=== PATIENT | female | born 1955 | race Caucasian/White ===

== ENCOUNTER 2016-06-27 09:35 | Day surgery (SDC) | payer BC ==
[~2016-06-27] VITALS: Ht 177.8 cm; Wt 70.5 kg
[2016-06-27] MEDS ORDERED: LEXAPRO20 MG PO (10:47)
[2016-06-27] MEDS ORDERED: AMITIZA24 MCG PO (10:48)
[2016-06-27] MEDS ORDERED: PREMPRO 0.3 MG-1 TAB PO (10:48)
[2016-06-27] MEDS ORDERED: MACRODANTIN100 MG PO (10:49)
[2016-06-27] MEDS ORDERED: ENDOCET 10-3251 TAB PO (10:49)
[2016-06-27 10:52] VITALS: BP 86/49; Ht 177.8 cm; Wt 70.5 kg
[2016-06-27] MEDS ORDERED: [UNRECOGNIZED DRUG - OTHER] (11:03)
[2016-06-27 12:07] LABS: HEMATOCRIT 41.2 % (36.0-48.0); HEMOGLOBIN 13.1 g/dL (12-16); MCH 29.4 pg (26.0-34.0); MCHC 31.8 g/dL (31.0-37.0); MCV 92.6 fL (80.0-100.0); MEAN PLATELET VOLUME 10.8 fL (7.4-10.4); RBC 4.45 10x6/uL (4.00-5.40); RDW 14.4 % (11.5-14.5); WBC 4.8 10x3/uL (4.8-10.8)
--- NOTE | 2016-06-27 12:25 | NUR ---
1226 BALLOON DILATION 16 MOLDOVAN TO 18 MOLDOVAN X 1 MINUTE
--- NOTE | 2016-06-27 15:24 | NUR ---
1400--IV DC'D, PT UP TO DRESS. BRITTANY GANDHI 1410--DISCHARGE INSTRUCTIONS GIVEN, PT VERBALIZES UNDERSTANDING. PT OFF UNIT VIA WC. BRITTANY GANDHI
--- NOTE | 2016-06-28 12:18 | OP ---
PATIENT NAME: KAREN RUIZ MEDICAL RECORD: [id number] :57 LOCATION:[facility] ADMISSION DATE: SURGEON: MAXIMUS SUTTON DO DATE OF OPERATION: 06/27/2016 PROCEDURES: EGD with biopsies and balloon dilation less than 30 mm. INDICATIONS FOR PROCEDURE: Dysphagia, heartburn, left side abdominal pain. SCOPE: Olympus video gastroscope. MEDICATIONS: Propofol 100 mg IV per anesthesia. ESTIMATED BLOOD LOSS: Minimal. FINDINGS: Informed consent was given. The patient was made comfortable with the above medication. After reaching an adequate level of sedation by slow IV push, the patient was placed on her left side. The endoscope was then advanced under direct visualization through the mouth to the second portion of the duodenum. The upper, middle, and lower thirds of the esophagus appeared normal. 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 Cold forceps, biopsies were taken of this site to confirm the diagnosis. At the GE junction, there was also some mild esophageal stenosis. The endoscope did traverse this site without free dilating. The scope was advanced beyond the GE junction and retroflexed to view the cardia and fundus. There was a small hiatal hernia of the sliding type visualized on retroflexion. There were also a few benign appearing fundic gland type polyps in the fundus and body of the stomach. Scope was advanced down to the antrum and prepyloric region where there was some streaky erythema and granularity to the mucosa consistent with possible gastritis. Random biopsies were taken to submit for histology and to rule out H. pylori. The endoscope was advanced beyond the pylorus into the duodenum where the bulb and second portion of the duodenum appeared normal. The endoscope was then withdrawn back into the stomach and a CRE balloon was passed through the scope. The esophageal stenosis at the GE junction was dilated up to a total of 18 mm maximum diameter successfully. The scope was then withdrawn from the patient. The patient tolerated the procedure well and there were no complications. ESTIMATED BLOOD LOSS: Minimal. 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 2. Esophageal stenosis, dilated up to 18 mm. 3. Small sliding hiatal hernia. 4. Granularity and erythema of the antrum consistent with gastritis, biopsies taken. 5. Benign appearing fundic gland gastric polyps. PLAN AND RECOMMENDATIONS: 1. Discharge home when recovery parameters are met. 2. High fiber diet. 3. Continue current medications. 4. 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 OPERATIVE REPORT [id number] KAREN RUIZ 5. Follow up on symptoms. 6. The patient is scheduled to return in a month for a colonoscopy. We can read the symptoms at that time. TRANSINT:[id number] Voice Confirmation ID: [id number] DOCUMENT ID: [id number] MAXIMUS SUTTON DO at 1218 CC: [id number] DICTATION DATE: 06/27/16 1239 SIGN LETTERER: 06/27/160 [facility] 06/27/16 [facility] [address] [place] [address]
== END 2016-06-27 14:10 | disposition home or self-care (01) ==
LOC: D.OPS 09:35
PROVIDERS: Anesthesiology
DX: R13.10 Dysphagia, unspecified (principal); R10.9 Unspecified abdominal pain; K59.00 Constipation, unspecified; K44.9 Diaphragmatic hernia without obstruction or gangrene; K22.70 Barrett's esophagus without dysplasia; K31.7 Polyp of stomach and duodenum; Z01.812 Encounter for preprocedural laboratory examination; K21.9 Gastro-esophageal reflux disease without esophagitis

== ENCOUNTER 2016-07-30 05:50 | Day surgery (SDC) | payer BC ==
[~2016-07-30] VITALS: Ht 177.8 cm; Wt 70.5 kg
--- NOTE | ~2016-07-30 | OP ---
PATIENT NAME: KAREN RUIZ MEDICAL RECORD: [id number] :57 [facility]ATION:[facility] ADMISSION DATE: SURGEON: MAXIMUS SUTTON DO DATE OF OPERATION: 07/30/2016 PROCEDURE: Colonoscopy with biopsies. INDICATIONS FOR PROCEDURE: Constipation and left-sided abdominal pain. SCOPE: Olympus video pediatric colonoscope. MEDICATIONS: Propofol 175 mg IV per anesthesia. WITHDRAWAL TIME: Seven minutes. ESTIMATED BLOOD LOSS: Minimal. COMPLICATIONS: None. FINDINGS: Informed consent was given. The patient was made comfortable with the above medication. After reaching an adequate level of sedation by slow IV push, the patient was placed on her left side. A digital rectal examination was performed and revealed some small nonbleeding external hemorrhoids. The endoscope was then advanced under direct visualization through the rectum to the terminal ileum. The scope was slowly withdrawn and mucosa was carefully examined. The prep was fair. There were no polyps encountered on this examination. There were no diverticula as well. The entire colon did have an appearance consistent with melanosis coli, which is consistent with the patient's history of requiring laxatives for her chronic constipation. Random biopsies were taken to confirm this diagnosis. Retroflexion was performed in the rectum. There were small nonbleeding internal hemorrhoids present. The endoscope was then withdrawn from the patient. The patient tolerated the procedure well and there were no complications. IMPRESSIONS: 1. Melanosis coli. 2. Internal and external hemorrhoids, which were small and not bleeding. 3. Chronic constipation. PLAN AND RECOMMENDATIONS: 1. Discharge home when recovery parameters are met. 2. Continue high fiber diet. 3. Continue current medications. 4. Continue to work on a bowel regimen that helps with bowel movements, most significantly. So far this is consisted of Linzess 290 mcg daily and Senna. Other combinations could include fiber and MiraLax. I will discuss this with the patient and we will continue to work on a regimen that continues to improve her symptoms. TRANSINT:[id number] Voice Confirmation ID: [id number] DOCUMENT ID: [id number] OPERATIVE REPORT [id number] KAREN RUIZMAXIMUS HINKLE DO CC: [id number] DICTATION DATE: 07/30/16 08 HAND IRONER: 07/30/16 1634 [facility] 07/30/16 [place] [address]
[~2016-07-30 05:50] MED LIST: AMITIZA24 MCG PO; ENDOCET 10-3251 TAB PO; LEXAPRO20 MG PO; MACRODANTIN100 MG PO; PREMPRO 0.3 MG-1 TAB PO; [UNRECOGNIZED DRUG - OTHER]
[2016-07-30] MEDS ORDERED: LINZESS290 MCG PO (06:23)
[2016-07-30] MEDS ORDERED: PROTONIX40 MG PO (06:23)
[2016-07-30 06:41] VITALS: Ht 177.8 cm; Wt 70.5 kg
[2016-07-30 06:55] LABS: BASOPHILS 0.2 % (0-2); EOSINOPHILS 1.5 % (0-7); HEMATOCRIT 42.1 % (36.0-48.0); HEMOGLOBIN 13.3 g/dL (12-16); IMMATURE GRANULOCYTES 0.2 % (0-5); LYMPHOCYTES 32.6 % (15-50); MCH 29.1 pg (26.0-34.0); MCHC 31.6 g/dL (31.0-37.0); MCV 92.1 fL (80.0-100.0); MEAN PLATELET VOLUME 10.8 fL (7.4-10.4); MONOCYTES 7.5 % (2-11); PLATELET COUNT 237 10x3/uL (130-400); RBC 4.57 10x6/uL (4.00-5.40); RDW 14.2 % (11.5-14.5); WBC 5.2 10x3/uL (4.8-10.8)
[2016-07-30 07:04] LABS: CALC OSMOLALITY 278 mosm/kg (275-300); CALCIUM 9.2 mg/dL (8.5-10.1); CARBON DIOXIDE 25.3 mmol/L (21.0-32.0); CHLORIDE - SERUM 106 mmol/L (98-107); CREATININE - SERUM 0.7 mg/dL (0.6-1.3); GLUCOSE 110 mg/dL (74-106); SODIUM 140 mmol/L (136-145); UREA NITROGEN 10 mg/dL (7-18); eGFR NON AFRICAN AMERICAN > 90 mL/min (90-120)
--- NOTE | 2016-07-30 10:24 | NUR ---
0820-RECD TO ROOM. ALERT. IV PATENT. DR SUTTON HERE TO REPORT FINDINGS 0830-FULL LIQUIDS SERVED 0850-IV D/C. DISCHARGE INSTRUCTIONS REVIEWED. 0900-D/C HOME VIA WHEELCHAIR.
== END 2016-07-30 09:00 | disposition home or self-care (01) ==
LOC: D.OPS 05:50
PROVIDERS: Anesthesiology
DX: K63.89 Other specified diseases of intestine (principal); K64.8 Other hemorrhoids; K64.4 Residual hemorrhoidal skin tags; K59.09 Other constipation; Z01.812 Encounter for preprocedural laboratory examination